=== PATIENT | female | born 1965 | race Two or more races ===

== ENCOUNTER 2025-05-31 15:06 | Emergency (ER) | payer MEDICAID, OTHER ==
[~2025-05-31] VITALS: Ht 162.6 cm; Wt 50.6 kg
--- NOTE | 2025-05-31 15:35 | ED.PDOC ---
GI ASSESSMENT HPI Comments 59 y/o F, presents to the ED for CC of abdominal pain. Patient states, she has been experiencing intermittent suprapubic abdominal pain x3days. Patient reports, pain to be sharp in nature. Patient denies nausea, vomiting, or diarrhea. No other symptoms or modifying factors present at this time. Chief Complaint: Abdominal Pain Time Seen by MD: 15:28 Reviewed Notes: Nurses Notes, Medications, Allergies Allergies: Coded Allergies: NO KNOWN ALLERGIES (Unverified , 05/31/25) Information Source: Patient Mode of Arrival: Ambulatory Timing: Days Duration: Since onset Prehospital treatment: None Quality: None Vomitus: None Stool: Normal Severity: Moderate Recent: None Recent Hx of: None Pain Location: Suprapubic Modifying Factors: Nothing Associated sign and symptoms: Abdominal Pain Past Medical History PAST MEDICAL HISTORY: Denies Surgical History: Denies all surgeries [employer] History: Denies all [employer] Hx Family History Family History: Unknown Social History Smoker: Non-Smoker Alcohol: Denies ETOH Use Drugs: Denies Drug Use Lives In: Home Constitutional: denies: chills, diaphoresis, fatigue, fever, malaise, sweats, weakness, others EENTM: denies: blurred vision, double vision, ear bleeding, ear discharge, ear drainage, ear pain, ear ringing, eye pain, eye redness, hearing loss, mouth pain, mouth swelling, nasal discharge, nose bleeding, nose congestion, nose pain, photophobia, tearing, throat pain, throat swelling, voice changes, others Respiratory: denies: cough, hemoptysis, orthopnea, SOB at rest, shortness of breath, SOB with excertion, stridor, wheezing, others Cardiovascular: denies: chest pain, dizzy spells, diaphoresis, Dyspnea on exertion, edema, irregular heart beat, left arm pain, lightheadedness, palpitations, PND, syncope, others Gastrointestinal: reports: abdominal pain; denies: abdomen distended, blood streaked bowels, constipated, diarrhea, dysphagia, difficulty swallowing, hematemesis, melena, nausea, poor appetite, poor fluid intake, rectal bleeding, rectal pain, vomiting, others Genitourinary: denies: abnormal vagina bleeding, burning, dyspareunia, dysuria, flank pain, frequency, hematuria, incontinence, pain, , vagina discharge, urgency, others Neurological: denies: dizziness, fainting, headache, left sided numbness, left sided weakness, numbness, paresthesia, pre-existing deficit, right sided numbness, right sided weakness, seizure, speech problems, tingling, tremors, weakness, others Musculoskeletal: denies: back pain, gout, joint pain, joint swelling, muscle pain, muscle stiffness, neck pain, others Integumetry: denies: bruises, change in color, change in hair/nails, dryness, laceration, lesions, lumps, rash, wounds, others Allergic/Immunocompromised: denies: Difficulty Healing, Frequent Infections, Hives, Itching, others Hematologic/Lymphatic: denies: anemia, blood clots, easy bleeding, easy bruising, swollen glands, others Endocrine: denies: excessive hunger, excessive sweating, excessive thirst, excessive urination, flushing, intolerance to cold, intolerance to heat, unexplained weight gain, unexplained weight loss, others Psychiatric: denies: anxiety, bipolar disorder, depression, hopeless, panic disorder, schizophrenia, sleepless, suicidal, others All Other Systems: Reviewed and Negative Physical Exam General Appearance: No Apparent Distress, Normal HEENT: Normal ENT Inspection, Pharynx Normal Neck: Full Range of Motion, Non-Tender, Normal, Normal Inspection Respiratory: Chest Non-Tender, Lungs Clear, No Accessory Muscle Use, No Respiratory Distress, Normal Breath Sounds Cardiovascular: No Edema, No Murmur, No Gallop, Normal Peripheral Pulses, Regular Rate/Rhythm Breast Exam: Deferred Gastrointestinal: No Organomegaly, Non Tender, No Pulsatile Mass, Normal Bowel Sounds, Soft Genitalia: Deferred Pelvic: Deferred Rectal: Deferred Extremities: No calf tenderness, Normal capillary refill, Normal inspection, Normal range of motion, Non-tender, No pedal edema Musculoskeletal : Apperance: Normal Neurologic: Alert, social secretary II-XII nml as Tested, No Motor Deficits, Normal Affect, Normal Mood, No Sensory Deficits Cerebellar Function: Normal Reflexes: Normal Skin: Dry, Normal Color, Warm Lymphatic: No Adenopathy Was a procedure done? Was a procedure done?: No GI differential Dx Differential Diagnosis: Constipation, Diverticular disease, Inflammatory BD, Ovarian cyst/torsion, Pancreatitis X-Ray, Labs, Meds, VS Vital Signs Date Time Temp Pulse Resp B/P (MAP) Pulse Ox O2 Delivery O2 Flow Rate FiO2 7/01/24 17:06 98.1 68 17 127/77 (94) 100 98.1 05/31/25 15:21 98.8 83 16 111/80 (90) 99 98.8 Lab Test 05/31/25 16:03 05/31/25 15:20 Range/Units White Blood Count 7.2 4.4-10.8 10^3/uL Red Blood Count 4.99 4.0-5.20 10^6/uL Hemoglobin 13.4 12.2-16.2 g/dL Hematocrit 41.4 36.0-46.0 % Mean Corpuscular Volume 83.0 80.0-100.0 fL Mean Corpuscular Hemoglobin 26.9 L 28.0-32.0 pg Mean Corpuscular Hemoglobin Concent 32.4 32.0-36.0 g/dL Red Cell Distribution Width 13.4 11.8-14.3 % Platelet Count 188 140-450 10^3/uL Mean Platelet Volume 8.5 6.9-10.8 fL Neutrophils (%) (Auto) 51.5 37.0-80.0 % Lymphocytes (%) (Auto) 32.2 10.0-50.0 % Monocytes (%) (Auto) 10.0 0.0-12.0 % Eosinophils (%) (Auto) 5.6 0.0-7.0 % Basophils (%) (Auto) 0.7 0.0-2.0 % Neutrophils # (Auto) 3.7 1.6-8.6 10 ^3/uL Lymphocytes # (Auto) 2.3 0.4-5.4 10 ^3/uL Monocytes # (Auto) 0.7 0-1.3 10 ^3/uL Eosinophils # (Auto) 0.4 0-0.8 10 ^3/uL Basophils # (Auto) 0 0-0.2 10 ^3/uL Nucleated Red Blood Cells 0.1 % Sodium Level 141 136-145 mmol/L Potassium Level 4.2 3.5-5.1 mmol/L Chloride Level 106 98-107 mmol/L Carbon Dioxide Level 28 20-31 mmol/L Anion Gap 7 5-15 Blood Urea Nitrogen 17 9-23 mg/dL Creatinine 0.71 0.550-1.02 mg/dL Glomerular Filtration Rate Calc 97 >90 mL/min BUN/Creatinine Ratio 23.9 H 10.0-20.0 Serum Glucose 85 74-106 mg/dL Calcium Level 9.8 8.7-10.4 mg/dL Lipase 58 H 12-53 U/L Urine Color Light-yellow Yellow Urine Clarity Clear Clear Urine pH 6.0 5.0-9.0 Urine Specific [place] 1.029 1.001-1.035 Urine Protein Negative Negative Urine Ketones Negative Negative Urine Blood Negative Negative /uL Urine Nitrite Negative Negative Urine Bilirubin Negative Negative Urine Urobilinogen 2 H Negative mg/dL Urine Leukocyte Esterase 1+ Negative /uL Urine RBC 4 0 - 4 /hpf Urine Microscopic WBC 1 0-5 /HPF Urine Squamous Epithelial Cells Few <5 /hpf Urine Bacteria None seen None Seen /hpf Urine Glucose Normal Normal mg/dL [place] [id number] Ph: [phone] DIAGNOSTIC IMAGING Diagnostic Imaging Report : [id number] Signed PATIENT: LILLY VENTURA ACCT: [id number] UNIT: [id number] : 1965 LOC: ER ROOM / BED: / AGE / SEX: 59 / F ADM STATUS: REG ER SERVICE [id number] ORDERING PHYSICIAN: MABLE SALAS PROCEDURE(s): ABPL - CT AB PEL WO CON-NO ORAL OR IV REASON: ABD PAIN ORDER NUMBER(s): [id number], ACCESSION NUMBER(s): [id number] Indication: ABD PAIN Technique: CT axial images of the abdomen and pelvis are obtained without contrast. Coronal and sagittal reformats were obtained. Radiation Dose Information: CTDI volume is 5.07 mGy. Dose-length product is 269.25 mGy*cm Comparison: None FINDINGS: There is limited interpretation of the abdomen and pelvis without administration of intravenous contrast. The lung bases demonstrate no pleural effusion. Adrenal glands, spleen, pancreas unremarkable in shape. Cholelithiasis. Liver is unremarkable in shape. The kidneys demonstrate no hydronephrosis. Stomach is moderately distended. Small bowel loops are normal in caliber. Moderate to large volume stool within the colon. No secondary signs for a ppendicitis. Abdominal aortic atherosclerotic disease. Bladder partially distended. Multiple uterine leiomyoma/calcified leiomyomas. No inguinal lymphadenopathy. Lqsv-rs-msvolrnc bilateral sacroiliac degenerative joint disease. Oghz-rm-dvyxuzno thoracolumbar degenerative disc disease heterotopic mineralization in the right femur greater trochanter region. IMPRESSION: Moderate to large volume stool within the colon. Cholelithiasis. Uterine leiomyomas which can be further characterized with MRI pelvis, ultrasound pelvis. Other findings as described. ATED BY: CHRISTIAN CAMPUZANO MD DICTATED DATE/TIME: 05/31/254 SIGNED BY: CHRISTIAN CAMPUZANO MD SIGNED DATE/TIME: 05/31/251623 CC: [place] [id number] Ph: [phone] DIAGNOSTIC IMAGING Diagnostic Imaging Report : [id number] Signed PATIENT: LILLY VENTURA ACCT: [id number] UNIT: [id number] : 1965 LOC: ER ROOM / BED: / AGE / SEX: 59 / F ADM STATUS: REG ER SERVICE 1643 ORDERING PHYSICIAN: MABLE SALAS PROCEDURE(s): PELUS - PELVIC REASON: PELVIC PAIN ORDER NUMBER(s): [id number], ACCESSION NUMBER(s): [id number] EXAM: US PELVIC CLINICAL HISTORY: PELVIC PAIN TECHNIQUE: Transabdominal ultrasound of the pelvis with color Doppler flow as clinically indicated. COMPARISON: None Findings: Same-day quantitative beta-hCG is not available. Uterus measures 8.6 x 4.5 x 6.5 cm in size with relatively heterogeneous echotexture and normal contours. Multiple heterogeneous and hypoechoic lesions with calcifications throughout the uterus, the largest measures 2.4 x 3.0 x 1.5 cm. Endometrial thickness measures 0.3 cm with smooth contour. Cervix appears grossly unremarkable. Right ovary measures 1.8 x 2.0 x 1.0 cm. Left ovary not visualized. Normal right ovarian color Doppler flow. No free fluid in the cul-de-sac. Impression: 1. Myomatous uterus grossly unremarkable with endometrial thickness of 0.3 cm. 2. Right ovary is within normal limits with normal color flow. ATED BY: NEHA DAS DO DICTATED DATE/TIME: 05/31/251727 SIGNED BY: NEHA DAS DO SIGNED DATE/TIME: 05/31/251727 CC: X-Ray, Labs, Meds, VS Comment Imaging: X-rays and CT scans were reviewed and interpreted by this provider, imaging shows no fractures and no pathological disease. Pending radiology review. Laboratory: Labs reviewed and interpreted by this provider. No significant abnormalities noted. Patient has prior medical visits reviewed. Med reconciliation performed Vital signs reviewed Time of 1ST Reevaluation: 15:58 Reevaluation 1ST: Unchanged Patient Education/Counseling: Diagnosis, Treatment, Need For Follow Up (Follow up with PCP next available appointment.) Family Education/Counseling: No Family Present SEPSIS Sepsis Screen Physician Orders Ct Ab Pel Wo Con-No Oral Or Iv (05/31/25 15:39) Pelvic (05/31/25 16:43) Vital Signs Date Time Temp Pulse Resp B/P (MAP) Pulse Ox O2 Delivery O2 Flow Rate FiO2 05/31/25 17:06 98.1 68 17 127/77 (94) 100 98.1 05/31/25 15:21 98.8 83 16 111/80 (90) 99 98.8 Laboratory Tests Test 05/31/25 16:03 White Blood Count 7.2 10^3/uL (4.4-10.8) Departure 1 Departure Time of Disposition: 17:56 Impression: Primary Impression: Gastroenteritis Additional Impression: Constipation Qualified Codes: K59.01 - Slow transit constipation Disposition: HOME / SELF CARE / HOMELESS Condition: Fair e-Prescriptions Lactulose (Lactulose) 10 Gm/15 Ml Claudette 10 GM PO BID PRN, #200 ML Prov: MABLE SALAS 05/31/25 Discharged With: Self Critical Care Note Critical Care Time?: No Stability Stability form required: No Heart Score Heart Score: Heart Score Response (Comments) Value History N/A 0 EKG N/A 0 Age N/A 0 Risk Factors N/A 0 Troponin N/A 0 Total 0 I personally scribed for MABLE SALAS SENIOR DENTIST ([email or web address]) on 05/31/25 at 15:35. Electronically submitted by Hailey Henderson ([email or web address]). I personally scribed for MABLE SALAS SENIOR DENTIST ([email or web address]) on 05/31/25 at 16:58. Electronically submitted by Hailey Henderson ([email or web address]). I personally scribed for MABLE SALAS [facility] on 05/31/25 at 17:43. Electronically submitted by Hailey Henderson ([email or web address]). MABLE SALAS May 31, 2025 15:35
[2025-05-31 15:50] LABS: Urine Protein, UAD Negative (Negative)
[2025-05-31 16:16] LABS: Hemoglobin 13.4 g/dL (12.2-16.2); Mean Corpuscular Volume 83.0 fL (80.0-100.0)
[2025-05-31 16:18] LABS: Hematocrit 41.4 % (36.0-46.0); Mean Corpuscular Hemoglobin 26.9 pg (28.0-32.0); Nucleated Red Blood Cells % 0.1 %
[2025-05-31 16:26] LABS: Chloride 106 mmol/L (98-107); Potassium 4.2 mmol/L (3.5-5.1); Sodium 141 mmol/L (136-145)
--- NOTE | 2025-05-31 16:26 | DVH ---
Indication: ABD PAIN Technique: CT axial images of the abdomen and pelvis are obtained without contrast. Coronal and sagit nathan reformats were obtained. Radiation Dose Information: CTDI volume is 5.07 mGy. Dose-length product is 269.25 mGy*cm Comparison: None FINDINGS: There is limited interpretation of the abdomen and pelvis without administration of intravenous contr ast. The lung bases demonstrate no pleural effusion. Adrenal glands, spleen, pancreas unremarkable in shape. Cholelithiasis. Liver is unremarkable in sh ape. The kidneys demonstrate no hydronephrosis. Stomach is moderately distended. Small bowel loops are normal in caliber. Moderate to large volume stool within the colon. No secondary signs for appendicitis. Abdominal aortic atherosclerotic disease. Bladder partially distended. Multiple uterine leiomyoma/deni cified leiomyomas. No inguinal lymphadenopathy. Ugta-hc-wgeybwke bilateral sacroiliac degenerative joint disease. Aiwm-xn-jwaweevt thoracolumbar degenerative disc disease heterotopic mineralization in the right femu r greater trochanter region. IMPRESSION: Moderate to large volume stool within the colon. Cholelithiasis. Uterine leiomyomas which can be further characterized with MRI pelvis, ultrasound pelvis. Other findings as described.
[2025-05-31 16:27] LABS: Anion Gap 7 (5-15); Carbon Dioxide 28 mmol/L (20-31)
[2025-05-31 16:28] LABS: Calcium 9.8 mg/dL (8.7-10.4)
[2025-05-31 16:32] LABS: BUN/Creatinine Ratio 23.9 (10.0-20.0); Blood Urea Nitrogen 17 mg/dL (9-23); Glucose 85 mg/dL (74-106)
[2025-05-31 16:39] LABS: Lipase 58 U/L (12-53)
--- NOTE | 2025-05-31 17:31 | DVH ---
EXAM: US PELVIC CLINICAL HISTORY: PELVIC PAIN TECHNIQUE: Transabdominal ultrasound of the pelvis with color Doppler flow as clinically indicated. COMPARISON: None Findings: Same-day quantitative beta-hCG is not available. Uterus measures 8.6 x 4.5 x 6.5 cm in size with relatively heterogeneous echotexture and normal conto urs. Multiple heterogeneous and hypoechoic lesions with calcifications throughout the uterus, the lar gest measures 2.4 x 3.0 x 1.5 cm. Endometrial thickness measures 0.3 cm with smooth contour. Cervix appears grossly unremarkable. Right ovary measures 1.8 x 2.0 x 1.0 cm. Left ovary not visualized. Normal right ovarian color Doppl er flow. No free fluid in the cul-de-sac. Impression: 1. Myomatous uterus grossly unremarkable with endometrial thickness of 0.3 cm. 2. Right ovary is within normal limits with normal color flow.
[2025-05-31] MEDS ORDERED: LACT10SO3 PO (17:57)
[2025-05-31 18:11] VITALS: BP 142/88; PULSE 66; RESP 18; TEMP 98.3; O2SAT 100
== END 2025-05-31 18:12 | disposition home or self-care (01) ==
LOC: ER 15:06
DX: K52.9 Noninfective gastroenteritis and colitis, unspecified (principal); K59.00 Constipation, unspecified
CPT/HCPCS: 36415; 74176; 76856; 80048; 81001; 83690; 85025